=== PATIENT | male | born 1935 | race Caucasian/White ===

== ENCOUNTER 2016-07-26 15:13 | Emergency (ER) | payer MEDICARE, OTHER ==
[2016-07-26 18:18] LABS: HEMOGLOBIN 12.4 gm/dl (14.0-17.5); RED BLOOD COUNT 4.32 M/UL (4.20-5.50); WHITE BLOOD COUNT 8.5 K/UL (4.5-11.0)
[2016-07-26 19:55] LABS: BUN/CREATININE RATIO 15 (0-10)
== END 2016-07-26 21:20 | disposition home or self-care (01) ==
LOC: ER1 15:13
PROVIDERS: Emergency Medicine
DX: R53.1 Weakness (principal); N39.0 Urinary tract infection, site not specified; Z88.0 Allergy status to penicillin; F03.90 Unspecified dementia, unspecified severity, without behavioral disturbance, psychotic disturbance, mood disturbance, and anxiety; Z79.899 Other long term (current) drug therapy
CPT/HCPCS: 36415; 70450; 71010; 80053; 81001; 82550; 82553; 83874; 84439; 84443; 84484; 85025; 85610; 85730; 87086; 93005; 96374; 99285; J1956